=== PATIENT | female | born 1940 | race Caucasian/White ===

== ENCOUNTER 2019-03-11 15:32 | Outpatient (CLI) | payer MEDICARE ==
[2019-03-11 16:33] LABS: eGFR (Non-African) > 60
[2019-03-11 16:39] LABS: BASOPHILS % 0.4 % (0.0-1.5); NEUTROPHILS # 2.9 # k/uL (1.4-7.7)
== END 2019-03-11 15:34 ==
LOC: LAB 15:32
PROVIDERS: ATTEND Physician Assistant
DX: L40.0 Psoriasis vulgaris (principal)
CPT/HCPCS: 36415; 80053; 85025; 86704; 86706; 86803; 87340